=== PATIENT | female | born 1995 | race Caucasian/White ===

== ENCOUNTER 2021-05-30 12:35 | Emergency (ER) | payer SELFPAY ==
[~2021-05-30] VITALS: Ht 152.4 cm; Wt 83.9 kg
--- NOTE | 2021-05-30 12:40 | NUR ---
CAME TO ER C/O NONRADIATING R RIB PAIN X1 DAY. PAIN IS WORSE UPON INSPIRATION AND TWISTING. DENIES N/V, DIAPHORESIS. DENIES HX OF BLOOD CLOTS OR DVT. ON MONITOR.
--- NOTE | 2021-05-30 13:26 | NUR ---
Joie rg in [facility] - 05/30/21 at 1331 by SOFÍA BLOOD GLUCOSE [id number]
[2021-05-30] MEDS ORDERED: IV NS 0.9% 1,000 ML IV ONE (14:00)
[2021-05-30] MEDS ORDERED: KETOROLAC TROMETHAMINE INJ 30 MG/ML VIAL IV ONE (14:00)
--- NOTE | 2021-05-30 14:35 | NUR ---
PT SITTING COMFORTABLY IN BED. ATTACHED TO MONITOR.
[2021-05-30 14:37] LABS: BASOPHILS % (AUTO) 0.5 % (0.0-2.0); EOSINOPHILS % (AUTO) 0.6 % (0.0-6.0); HEMATOCRIT 42 % (33-45); HEMOGLOBIN 13.8 g/dL (11.5-14.8); LYMPHOCYTES # (AUTO) 1.3 K/uL (0.8-4.8); MEAN CORPUSCULAR HGB CONC 33 g/dl (31.0-36.0); MEAN CORPUSCULAR VOLUME 104 fL (82-100); MONOCYTES % (AUTO) 9.9 % (2.0-12.0); NEUTROPHILS # (AUTO) 7.6 K/uL (1.8-8.9); PLATELET COUNT (AUTO) 258 K/uL (150-450); RED BLOOD CELL COUNT(AUTO) 4.01 MIL/uL (4.0-5.2); WHITE BLOOD COUNT (AUTO) 10.1 K/uL (4.3-11.0)
[2021-05-30] MEDS ORDERED: KETOROLAC TROMETHAMINE 15 MG/ML VIAL ONE (14:38)
[2021-05-30 14:46] LABS: CALCIUM, SERUM 8.9 mg/dL (8.5-10.1); CARBON DIOXIDE 24 mmol/L (21-32); CHLORIDE 104 mmol/L (98-107); CREATININE 0.8 mg/dL (0.6-1.3); GLUCOSE 88 mg/dL (74-106); POTASSIUM 4.3 mmol/L (3.5-5.1); SODIUM SERUM 138 mmol/L (136-145); UREA NITROGEN, BLOOD 6 mg/dL (7-18)
[2021-05-30] MEDS ORDERED: IBUP-1957 PO (16:51)
[2021-05-30] MEDS ORDERED: AZIT250T13 PO (16:55)
--- NOTE | 2021-05-30 17:17 | NUR ---
IV removed. Catheter intact and site benign. Pressure and 4x4 applied to site. No bleeding noted.
--- NOTE | 2021-05-30 17:17 | NUR ---
Patient discharged to home in stable condition. Written and verbal after care instructions given. Patient verbalizes understanding of instruction.
[2021-05-30 17:19] VITALS: BP 107/59
== END 2021-05-30 17:21 | disposition home or self-care (01) ==
LOC: ER 12:42
DX: R09.1 Pleurisy (principal); F12.90 Cannabis use, unspecified, uncomplicated
CPT/HCPCS: 36415; 71045; 80048; 84484; 85025; 85378; 93005 ×2; 96361; 96374; 99285; J1885; J7030